=== PATIENT | female | born 1945 | race Caucasian/White ===

== ENCOUNTER → 2019-05-27 | Outpatient (CLI) | payer BC ==
[~2019-05-27] MED LIST: REGADENOSON 0.4 MG/5 ML DISP.SYRIN. IV ONE
--- NOTE | 2019-05-27 10:25 | PCVCIMAG ---
APPROVED REPORT Study performed: 05/27/2019 07:51:00 EXAM: Comprehensive 2D, Doppler, and color-flow Echocardiogram Patient Location: Echo lab Status: routine BSA: 1.72 HR: 63 bpmBP: 130/70 mmHg Rhythm: NSR Other Information Study Quality: Adequate Indications Abnormal ECG Dyspnea elevated calcium score, edema 2D Dimensions IVSd: 10.43 (7-11mm) LVDd: 42.50 mm PWd: 10.02 (7-11mm)Ascending Ao: 31.57 (22-36mm) LVDs: 33.10 (25-40mm) Left Atrium: 39.71 (27-40mm) Aortic Root: 29.70 mm LV Single Plane 4CH: 61.87 % LV Single Plane 2CH: 50.56 % Biplane EF: 56.5 % Volumes Left Atrial Volume (Systole) Single Plane 4CH: 64.68 mLSingle Plane 2CH: 68.13 mL LA ESV Index: 40.00 mL/m2 Aortic Valve AoV Peak Franklin.: 1.53 m/s AO Peak Gr.: 9.30 mmHgLVOT Max P.70 mmHg LVOT Max V: 0.96 m/s Mitral Valve E/A Ratio: 1.7 MV Decel. Time: 240.78 ms MV E Max Franklin.: 0.70 m/s MV A Franklin.: 0.41 m/s IVRT: 93.43 ms Pulmonary Valve PV Peak Franklin.: 0.89 m/sPV Peak Gr.: 3.14 mmHg Pulmonary Vein P Vein S: 0.63 m/sP Vein A: 0.47 m/s P Vein D: 0.73 m/sP Vein A Dur.: 173.0 msec P Vein S/D Ratio: 0.86 Tricuspid Valve TR Peak Franklin.: 2.81 m/s TR Peak Gr.: 31.58 mmHg Left Ventricle The left ventricle is normal size. There is normal LV segmental wall motion. There is normal left ventricular wall thickness. Left ventricular systolic function is normal. The left ventricular ejection fraction is within the normal range. LVEF is 55-60%. Right Ventricle The right ventricle is normal size. The right ventricular systolic function is normal. Atria Left atrium is mildly dilated. Right atrium is mildly dilated. Aortic Valve The aortic valve is normal in structure. No aortic regurgitation is present. There is no aortic valvular stenosis. Mitral Valve The mitral valve is normal in structure. Mild mitral regurgitation. No evidence of mitral valve stenosis. Tricuspid Valve The tricuspid valve is normal in structure. Mild to moderate tricuspid regurgitation with PAP of 39 mmHg. Pulmonic Valve The pulmonary valve is normal in structure. There is no pulmonic valvular regurgitation. Great Vessels The aortic root is normal in size. IVC is normal in size and collapses >50% with inspiration. Pericardium There is no pericardial effusion. There is no pleural effusion. <Conclusion> The left ventricle is normal size. There is normal left ventricular wall thickness. Left ventricular systolic function is normal. The right ventricle is normal size. Left atrium is mildly dilated. Right atrium is mildly dilated. The aortic valve is normal in structure. Mild mitral regurgitation. Mild to moderate tricuspid regurgitation with PAP of 39 mmHg.
--- NOTE | 2019-05-27 13:03 | PCVCIMAG ---
APPROVED REPORT Imaging Protocol: Rest Tc-99m/Stress Tc-99m 1 day Study performed: 05/27/2019 09:27:18 Indication: Abnormal EKG, Dyspnea, High Ca Score Patient Location: Out-Patient Stress Nurse: Marichuy Randolph RN, Jillian Leung RN AL Tech:JIGNA Watson Ht: 5 ft 5 in Wt: 143 lbs BSA: 1.72 m2 HR: 68 bpm BP: 160/74 mmHg BMI: 23.79 Rhythm: Sinus Rhythm, nonspecific ST-T abnormalities Medical History Medical History: Hyperlipidemia, High Ca Score Medications: No cardiac medications Allergies: Statins Cardiac Risk Factors: Age Pretest Chest Pain Characteristics: No chest pain Exercise History: Physically active Resting Data Rest SPECT myocardial perfusion imaging was performed in supine position 45 minutes following the intravenous injection of 10.6 mCi of Tc-99m Sestamibi. Time of rest injection: 0845 Date: 05/27/2019 Administration Route: IV Administration Site: Right AC Pharmacologic Stress Pharmacologic stress test was performed by injecting Regadenoson 0.4 mg IV push over 10-15 seconds immediately followed by the intravenous injection of 31.1 mCi of Tc-99m Sestamibi. Time of stress injection: 1020 Date: 05/27/2019 Administration Route: IV Administration Site: Right AC Gated Stress SPECT was performed 45 minutes after stress injection. The images were gated to evaluate regional wall motion and calculate left ventricular ejection fraction. Stress Test Details Stress Test: Pharmacologic stress was paired with low level exercise. Reason for pharmacologic stress test: physical limitation, feet. HRMax Heart Rate (APMHR): 147 bpm Resting HR: 68 bpmTarget HR (85% APMHR): 124 bpm Max HR Achieved: 108 bpm % of APMHR: 73 Recovery HR: 84 bpm BP Resting BP: 160/74 mmHg Max BP: 122/74 mmHg Recovery BP: 140/73 mmHg ECG Resting ECG: Sinus Rhythm, nonspecific ST-T abnormalities Stress ECG: Sinus Rhythm, NSSTT changes ST Change: Nondiagnostic resting ST abnormalities Arrhythmia: None Recovery ECG: Sinus Rhythm, nonspecific ST-T abnormalities Clinical Reason for Termination: Completed protocol Stress Symptoms: Headache Exercise duration: 4 min 00 sec Exercise capacity: 1.6 METs Symptoms resolved with caffeine. Study Quality Study: Good Artifact: Mild Breast artifact Study Data Post stress, the left ventricular ejection was 65%.. SSS: 2 SRS: 5 SDS: 1 TID = 1.05. Perfusion There is a small area of mildly reduced uptake in the apical segment of the anterior wall which is seen on the stress images as well as the resting images. This area thickens and moves normally and is most consistent with attenuation artifact. Wall Motion Normal left ventricular wall motion. Nuclear Conclusion ECG Findings: non-diagnostic Clinical Findings: non-diagnostic Nuclear Findings: negative for ischemia Exercise Capacity: not assessed Left Ventricular Function: normal Risk Study: low This study is of low probability for inducible ischemia or prior infarct. Normal global and segmental LV systolic function. Artifact: Mild Breast artifact
== END | disposition home or self-care (01) ==
LOC: PCVCIMAG 07:51
PROVIDERS: ATTEND Internal Medicine Cardiovascular Disease
DX: I08.1 Rheumatic disorders of both mitral and tricuspid valves (principal); R93.1 Abnormal findings on diagnostic imaging of heart and coronary circulation; R06.09 Other forms of dyspnea; E78.5 Hyperlipidemia, unspecified; E78.00 Pure hypercholesterolemia, unspecified; Z90.710 Acquired absence of both cervix and uterus; Z82.49 Family history of ischemic heart disease and other diseases of the circulatory system; Z88.8 Allergy status to other drugs, medicaments and biological substances
CPT/HCPCS: 78452; 93017; 93306; A9500; J2785